=== PATIENT | female | born 1955 | race Caucasian/White ===

== ENCOUNTER 2018-09-30 12:50 | Inpatient (IN) | payer OTHER ==
[~2018-09-30] VITALS: Ht 149.9 cm; Wt 83.9 kg
[~2018-09-30 12:50] MED LIST: GABA300C PO; LANTUS SUBQ; LEVO0.2T5 PO; METF1000 PO; UNKNOWN INSULIN SQVAC; VAS5 PO
[2018-09-30 12:55] VITALS: BP 149/64
--- NOTE | 2018-09-30 13:11 | NUR ---
Patient transferred to bed 3 via wheelchair by tech. RN evaluating patient at bedside.
--- NOTE | 2018-09-30 13:36 | NUR ---
Dr. Riggs evaluating patient at bedside.
--- NOTE | 2018-09-30 13:50 | NUR ---
PT PRESENTS TO THE ED WITH C/O RIGHT LOWER LEG REDNESS AND PAIN. ERYHEMA AND SWELLING NOTED TO THE RIGHT SANTANA, NO DRAINANGE NOTED. PATIENT STATES HER LEG HAS BEEN RED AND SWOLLEN X1 WEEK. PER PATIENT SHE WAS SEEN BY HER DR 3DAYS AGO AND WAS GIVEN CLINDAMYCIN. PT REPORTS TAKING MEDS ORDERED BUT NO RELIEF. BED LOWERED WITH SIDE RAIL UP PMH: DM, ARTHRITIS,HTN
[2018-09-30] MEDS ORDERED: NACL 0.9% 2,000 ML IV SCH (13:56)
[2018-09-30] MEDS ORDERED: CLINDAMYCIN 900 MG in DEXTROSE 5% 100 ML IV ONE (14:00)
[2018-09-30] MEDS ORDERED: CLINDAMYCIN 900 MG/6 ML VIAL IV ONE (14:19)
[2018-09-30 14:41] LABS: BASOPHILS % (AUTO) 0.6 % (0.0-2.0); EOSINOPHILS # (AUTO) 0.1 K/uL (0-0.4); EOSINOPHILS % (AUTO) 2.1 % (0.0-4.0); HEMATOCRIT 34.7 % (36-48); HEMOGLOBIN 11.5 g/dL (12.0-16.0); LYMPHOCYTES # (AUTO) 1.2 K/uL (2.5-16.5); LYMPHOCYTES % (AUTO) 20.1 % (20.5-51.1); MEAN CORPUSCULAR HEMOGLOBIN 25 pg (27-31); MEAN CORPUSCULAR HGB CONC 33 g/dL (33-37); MEAN CORPUSCULAR VOLUME 76.5 fL (80-94); MONOCYTES # (AUTO) 0.4 K/uL (0.8-1.0); MONOCYTES % (AUTO) 7.3 % (1.7-9.3); NEUTROPHILS # (AUTO) 4.1 K/uL (1.8-7.7); NEUTROPHILS % (AUTO) 69.9 % (42.2-75.2); PLATELET COUNT (AUTO) 173 K/uL (140-450); RED BLOOD CELL COUNT(AUTO) 4.53 MIL/uL (4.20-5.40); RED CELL DISTRIBUTION WIDTH 15.4 % (11.6-13.7); WHITE BLOOD COUNT (AUTO) 5.8 K/uL (4.8-10.8)
[2018-09-30 14:46] LABS: BILIRUBIN,URINE NEGATIVE (NEGATIVE); BLOOD, URINE 2+ (NEGATIVE); COLOR,URINE YELLOW (YELLOW); LEUKOCYTE ESTERASE ,URINE NEGATIVE (NEGATIVE); NITRITE, URINE NEGATIVE (NEGATIVE); UGLUCOSE 2+ (NEGATIVE)
[2018-09-30 14:47] LABS: APPEARANCE,URINE HAZY (CLEAR)
[2018-09-30 14:50] LABS: ANION GAP 7.9 (8-16); CHLORIDE 102 mmol/L (98-107); GFR ARICAN-AMERICAN 72 mL/min (>90); GLUCOSE 274 mg/dL (74-106); POTASSIUM 3.9 mmol/L (3.5-5.1); SODIUM SERUM 136 mmol/L (136-145); UREA NITROGEN, BLOOD 36 mg/dL (7-18)
[2018-09-30 14:55] LABS: PROTHROMBIN TIME 9.4 secs (10.8-13.4)
[2018-09-30 14:56] LABS: ALBUMIN 2.8 g/dL (3.4-5.0); ASPARTATE AMINOTRANSFERASE 23 U/L (15-37); MAGNESIUM 2.1 mg/dL (1.8-2.4); TOTAL BILIRUBIN 0.2 mg/dL (0.0-1.0)
[2018-09-30 14:57] LABS: RBC,URINE 11-20 (MOD) /HPF (0-5); WBC,URINE 0-5 /HPF (0-5)
--- NOTE | 2018-09-30 17:05 | NUR ---
RECEIVED HAND OFF REPORT FROM LICENSED APPRAISER. PT IS IN BED PT IS STABLE AND IN NO APPARENT DISTRESS. ALL SAFETY MEASURES ARE IN PLACE. WILL CONTINUE TO MONITOR.
--- NOTE | 2018-09-30 17:07 | NUR ---
Patient will be admitted to care of DR PELAYO. Admited to [facility]. Will go to room 120B. Belongings list completed. Report to SILVERIO YOUNG.
[2018-09-30] MEDS: NACL 0.9% 1,000 ML IV SCH (17:17)
[2018-09-30] MEDS ORDERED: ALBUTEROL 0.083% 2.5 MG/3 ML NEBU INH PRN (17:20)
[2018-09-30] MEDS ORDERED: INSULIN LISPRO SLIDING SCALE 100 UNITS/ML VIAL SUBQ PRN (17:20)
[2018-09-30] MEDS ORDERED: VANCOMYCIN PER PHARMACY MC PRN (17:20)
[2018-09-30] MEDS ORDERED: ONDANSETRON 4 MG/2 ML VIAL IVP PRN (17:20)
[2018-09-30] MEDS ORDERED: DEXTROSE 50% 50 ML SYR IVP PRN (17:20)
[2018-09-30] MEDS ORDERED: MORPHINE SULFATE 4 MG/ML SYR IVP PRN (17:20)
[2018-09-30] MEDS ORDERED: HYDROcodone/APAP 5/325 MG 1 TAB TAB PO PRN (17:20)
--- NOTE | 2018-09-30 17:40 | NUR ---
ADMINISTERED CLONIDINE STAT INSTRUCTED BY DR. PELAYO. DID MEDICATION OVERRIDE.
[2018-09-30] MEDS ORDERED: cloNIDine 0.1 MG TAB ONE (17:41)
--- NOTE | 2018-09-30 18:00 | NUR ---
TOOK PICTURES OF PTS RIGHT LOWER LEG WOUND AND PLACED IN PT CHART
--- NOTE | 2018-09-30 18:40 | NUR ---
CLONIDINE REASSESSMENT BP 157/44. PT IS AWAKE IN BED PT IS STABLE AND IN NO APPARENT DISTRESS. ALL SAFETY MEASURES ARE IN PLACE. WILL CONTINUE TO MONITOR. IVF INFUSING IV SITE SHOWS NO SIGNS OF INFILTRATION OR INFLAMMATION.
[2018-09-30] MEDS: cloNIDine 0.1 MG TAB PO PRN ×2 (18:45→21:04)
[2018-09-30] MEDS: LEVOFLOXACIN 500 MG/D5W PREMIX 100 ML IV SCH (18:54)
--- NOTE | 2018-09-30 19:25 | NUR ---
ENDORSED PT TO CO FOUNDER AND DIRECTOR RN PT IS AWAKE IN BED. IVF INFUSING. PT IS STABLE AND APPEARS IN NO APPARENT DISTRESS. ALL SAFETY MEASURES ARE IN PLACE. WILL CONTINUE TO MONITOR.
--- NOTE | 2018-09-30 19:30 | NUR ---
RECEIVED REPORT FROM DAY SHIFT RNEDDA. PATIENT SLEEPING IN BED. NO SIGNS OF DISTRESS ON RA. SAFETY PRECAUTIONS IN PLACE.
[2018-09-30 19:54] VITALS: BP 177/93
[2018-09-30] MEDS ORDERED: VANCOMYCIN 1,000 MG VIAL ONE (20:10)
[2018-09-30] MEDS: VANCOMYCIN 750 MG in DEXTROSE 5% 250 ML IV SCH (20:10)
[2018-09-30] MEDS: BLOOD GLUCOSE MONITORING 1 DEV DEV FS SCH (20:24)
--- NOTE | 2018-09-30 20:30 | NUR ---
ADMINISTERED SCHEDULED MEDICATIONS. PATIENT BLOOD GLUCOSE IS 343. PATIENT STATES SHE IS ALLERGIC TO HUMALOG AND CANNOT TAKE IT. ASKED PATIENT WHICH REGULAR INSULIN SHE CAN TAKE, SHE CALLED HOME TO FIND OUT. AWAITING RETURN PHONE CALL WITH NAME OF ACCEPTABLE REGULAR INSULIN.
--- NOTE | 2018-09-30 21:00 | NUR ---
RECEIVED CALL BACK FROM FAMILY THAT PATIENT TAKES APIDRA FOR REGULAR INSULIN. PATIENT ALSO STATES SHE HAS PAIN IN HER FINGERS AND FEET BUT THAT GABAPENTIN IS NOT EFFECTIVE, AND THAT NORCO AND MORPHINE MAKE HER TOO SLEEPY, SHE WILL NOT TAKE THOSE. SHE THINKS SHE TAKES BACLOFEN, AND WILL ALSO TAKE NAPROXEN. SHE WILL TAKE TYLENOL IF NEED BE. WILL CALL DR. PELAYO TO INFORM OF THESE FINDINGS.
--- NOTE | 2018-09-30 21:10 | NUR ---
DR. PELAYO RETURNED PHONE CALL. WILL CHANGE ORDERS FROM HUMALOG SLIDING SCALE OT APIDRA SLIDING SCALE. NO BACLOFEN UNLESS PATIENT CAN PROVIDE PROOF OF PRIOR PRESCRIPTION. GIVE PATIENT TYLENOL FOR DIGITAL PAIN.
--- NOTE | 2018-09-30 22:09 | NUR ---
PAGED DR PELAYO. NEED NEW ORDER FOR APIDRA PLACED.
--- NOTE | 2018-09-30 22:15 | NUR ---
DR. XIONG CHAIN FORMING MACHINE OPERATOR FOR DR. PELAYO. PATIENT IS ALLERGIC TO HUMALOG. PATIENT USES APIDRA FOR REGULAR INSULIN AT HOME. APIDRA IS NOT AVAILABLE. CURRENT BLOOD GLUCOSE IS 343. PER DR. XIONG, PATIENT NEEDS TO BRING IN THE APIDRA FROM HOME TO PLACE ORDER A HOME MED. PATIENT WILL CALL SON TO BRING APIDRA. PER DR. XIONG. HUMULIN 70/30 IS A ADEQUATE SUBSTITUTE. HE ORDERED 10 UNITS HUMULIN 70/30 SUB Q, ONE TIME DOSE, NOW. WILL DISCUSS WITH PATIENT.
[2018-09-30] MEDS ORDERED: INSULIN NPH HUM/REG INSULIN HM 100 UNIT/ML 10 ML VIAL SUBQ SCH (22:30)
--- NOTE | 2018-09-30 22:30 | NUR ---
PATIENT IS REFUSING TO TAKE HUMULIN FOR FEAR THAT IS SIMILAR TO HUMALOG WHICH SHE IS ALLERGIC TO. EDUCATED PATIENT THAT THE DOCTOR IS AWARE OF THE HUMALOG ALLERGY AND THAT THIS IS A DIFFERENT INSULIN. PATIENT HAS CALLED HER SON TO BRING APIDRA, AND WANTS TO WAIT FOR HIM. EXPLAINED THAT IT IS A TIMELY PROCESS TO HAVE PHARMACY VERIFY A HOME MED, BUT SHE PREFERS TO WAIT.
[2018-09-30] MEDS: ACETAMINOPHEN 325 MG TAB PO PRN (23:28)
--- NOTE | 2018-09-30 23:45 | NUR ---
PATIENT SON BROUGHT INSULIN FROM HOME, BUT IT IS NOT APIDRA. IT IS BASAGLAR LONG ACTIN INSULIN IN A PEN. PATIENT TAKES 50 UNITS EACH MORNING AND NIGHT. STILL NO APIDRA AT THIS TIME. EXPLAINED AGAIN THAT HUMULIN IS WHAT WE CURRENT HAVE AVAILABLE TO MANAGE HER HIGH GLUCOSE LEVELS, AND THAT SHE HAS AN INFECTION THAT REQUIRES BETTER GLUCOSE MANAGEMENT FOR OPTIMAL HEALING. SHE AGREED TO TAKE THE 10 UNITS OF HUMULIN 70/30 SUB Q. ALL HOME MEDS HAVE BEEN TURNED IN TO PHARMACY.
[2018-10-01] VITALS: BP 129/47
--- NOTE | 2018-10-01 00:08 | NUR ---
ADMINISTERED 10 UNITS OF HUMULIN 70/30 SUB Q. PATIENT GLUCOSE 354 PRIOR TO ADMINISTRATION. EDUCATED PATIENT ON SIGNS OF HYPOGLYCEMIA AND TO CALL ME IF SHE FEELS SHE MAY HAVE LOW GLUCOSE. WILL MONITOR PATIENT CLOSELY WELL.
--- NOTE | 2018-10-01 02:00 | NUR ---
PATIENT SLEEPING, SKIN IS DRY, PATIENT WAKES EASILY, LOC WITHIN NORMAL LIMITS. PATIENT STABLE, NO SIGNS OF DISTRESS ON RA.
[2018-10-01] MEDS: NACL 0.9% 1,000 ML IV SCH ×2 (02:45→06:45)
--- NOTE | 2018-10-01 04:00 | NUR ---
PATIENT STABLE, SLEEPING BUT WAKES EASILY, NO SIGNS OF DISTRESS ON RA. SAFETY PRECAUTIONS IN PLACE. WILL CONTINUE TO MONITOR.
--- NOTE | 2018-10-01 05:50 | NUR ---
PATIENT C/O FEELINGS OF HYPOGLYCEMIA. FINGERSTICK GLUCOSE IS 126. PATIENT IS REQUESTING A SNACK. WILL PROVIDE SNACK AND RELAY FINDINGS TO DAY SHIFT RN. NO SLIDING SCALE COVERAGE IS AVAILABLE AT THIS TIME.
[2018-10-01] MEDS: LEVOTHYROXINE 0.1 MG TAB PO SCH (06:45)
--- NOTE | 2018-10-01 07:24 | NUR ---
GAVE BEDSIDE REPORT TO DAY SHIFT RNEDDA. PATIENT STABLE WITH NO SIGNS OF DISTRESS ON RA.
--- NOTE | 2018-10-01 07:25 | NUR ---
RECEIVED HAND OFF REPORT FROM RISK MANAGEMENT CONSULTANT NURSE PT IS AWAKE IN BED PT IS STABLE AND IN NO APPARENT DISTRESS. ALL SAFETY MEASURES ARE IN PLACE, WILL CONTINUE TO MONITOR.
[2018-10-01] MEDS: BLOOD GLUCOSE MONITORING 1 DEV DEV FS SCH ×4 (07:43→21:48)
[2018-10-01 07:44] LABS: BASOPHILS % (AUTO) 0.9 % (0.0-2.0); EOSINOPHILS # (AUTO) 0.1 K/uL (0-0.4); EOSINOPHILS % (AUTO) 2.9 % (0.0-4.0); HEMATOCRIT 34.4 % (36-48); HEMOGLOBIN 11.3 g/dL (12.0-16.0); LYMPHOCYTES # (AUTO) 1.2 K/uL (2.5-16.5); LYMPHOCYTES % (AUTO) 26.7 % (20.5-51.1); MEAN CORPUSCULAR HEMOGLOBIN 25 pg (27-31); MEAN CORPUSCULAR HGB CONC 33 g/dL (33-37); MEAN CORPUSCULAR VOLUME 76.3 fL (80-94); MONOCYTES # (AUTO) 0.4 K/uL (0.8-1.0); MONOCYTES % (AUTO) 8.5 % (1.7-9.3); NEUTROPHILS # (AUTO) 2.6 K/uL (1.8-7.7); PLATELET COUNT (AUTO) 169 K/uL (140-450); RED BLOOD CELL COUNT(AUTO) 4.51 MIL/uL (4.20-5.40); RED CELL DISTRIBUTION WIDTH 15.1 % (11.6-13.7); WHITE BLOOD COUNT (AUTO) 4.3 K/uL (4.8-10.8)
--- NOTE | 2018-10-01 07:44 | NUR ---
FINGERSTICK GLUCOSE 168. NOT ABLE TO GIVE SLIDING SCALE BECAUSE APIDRA NOT AVAILABLE AT THE MOMENT. WAITING FOR FAMILY TO BRING MEDICATION. WILL ADMINISTER SCHEDULED LANTUS EARLY.
--- NOTE | 2018-10-01 07:52 | NUR ---
DR. XIONG PURCHASING INTERNSHIP FOR DR. PELAYO. PATIENT IS ALLERGIC TO HUMALOG. PATIENT USES APIDRA FOR REGULAR INSULIN AT HOME. APIDRA IS NOT AVAILABLE. CURRENT BLOOD GLUCOSE IS 343. PER DR. XIONG, PATIENT NEEDS TO BRING IN THE APIDRA FROM HOME TO PLACE ORDER A HOME MED. PATIENT WILL CALL SON TO BRING APIDRA. PER DR. XIONG. HUMULIN 70/30 IS A ADEQUATE SUBSTITUTE. HE ORDERED 10 UNITS HUMULIN 70/30 SUB Q, ONE TIME DOSE, NOW. WILL DISCUSS WITH PATIENT. Addendum: 10/01/18 at 0804 by Mona Malone RN THIS CONVERSATION OCCURRED ON 09/30/18 @ 1486
[2018-10-01 08:00] VITALS: BP 166/55
[2018-10-01 08:05] LABS: PHOSPHORUS 3.8 mg/dL (2.5-4.9)
--- NOTE | 2018-10-01 08:05 | NUR ---
ADMINISTERED 50 UNITS LANTUS. PT REFUSED GABAPENTIN. PT STATED IT DOES NOT HELP HER.
[2018-10-01 08:07] LABS: ANION GAP 8.6 (8-16); CARBON DIOXIDE 29.6 mmol/L (21-32); CREATININE 0.7 mg/dL (0.6-1.3); POTASSIUM 4.2 mmol/L (3.5-5.1)
--- NOTE | 2018-10-01 08:10 | NUR ---
ASKED PATIENT IF HER SON WILL BE ABLE TO BRING THE APIDRA. PT STATED THAT SHE RAN OUT OF THAT MEDICATION AND HER PRIMARY DOCTORS OFFICE IS CLOSED THIS WEEKEND. INFORMED CHARGE NURSE JOHN PAUL, JOHN PAUL SPOKE WITH PHARMACY. WILL SPEAK WITH DR. XIONG WHEN HE ARRIVES ON THE UNIT. AND WILL CONTINUE TO MONITOR THE PATIENTS BLOOD SUGAR.
[2018-10-01] MEDS: ENALAPRIL 5 MG TAB PO SCH (08:21)
[2018-10-01] MEDS: GABAPENTIN 300 MG CAP PO SCH (08:22)
[2018-10-01] MEDS: INSULIN LANTUS 100 UNITS/ML 10 ML VIAL SUBQ SCH (08:27)
[2018-10-01] MEDS: VANCOMYCIN 750 MG in DEXTROSE 5% 250 ML IV SCH ×2 (08:29→21:39)
--- NOTE | 2018-10-01 09:25 | NUR ---
FREQUENT ROUNDING PT IS AWAKE IN BED. PT IS STABLE AND IN NO APPARENT DISTRESS. ALL SAFETY MEASURES ARE IN PLACE. WILL CONTINUE TO MONITOR.
--- NOTE | 2018-10-01 11:47 | NUR ---
FINGERSTICK GLUCOSE 285. NO SLIDING SCALE AVAILABLE BECAUSE PATIENT IS ALLERGIC TO HUMALOG. PT HAD HUMILIN LAST NIGHT FOR HIGH BLOOD SUGAR. PAGED DR. PELAYO FOR INSULIN FOR COVERAGE
[2018-10-01] MEDS ORDERED: COMMUNICATION ORDER MC SCH (12:20)
--- NOTE | 2018-10-01 12:41 | NUR ---
SPOKE WITH LOKESH FROM PHARMACY ABOUT HAVING THEM VERIFY THE REGULAR INSULIN ORDER. THAT WAS PLACED SO WE CAN GIVE THE MEDICATION. LOKESH SAID HE WILL SEND A VIAL OF REGULAR INSULIN SO IT CAN BE ADMINISTERED.
[2018-10-01] MEDS: INSULIN REGULAR HUMAN 100 UNIT/ML SUBQ PRN ×3 (13:18→22:50)
--- NOTE | 2018-10-01 13:18 | NUR ---
RECEIVED HUMULIN R FROM PHARMACY ADMINISTERED MEDICATION PER SLIDING SCALE WILL CONTINUE TO MONITOR, PT IS STABLE AND IN NO APPARENT DISTRESS AT THE MOMENT.
--- NOTE | 2018-10-01 15:25 | NUR ---
FREQUENT ROUNDING PT IS STABLE AND IN NO APPARENT DISTRESS. ALL SAFETY MEASURES ARE IN PLACE. WILL CONTINUE TO MONITOR,
[2018-10-01 16:00] VITALS: BP 188/65
[2018-10-01] MEDS: cloNIDine 0.1 MG TAB PO PRN (16:26)
--- NOTE | 2018-10-01 16:28 | NUR ---
CLONIDINE ADMINISTERED BP 188/65. WILL REASSESS IN ONE HOUR
--- NOTE | 2018-10-01 16:30 | NUR ---
FINGERSTICK BLOOD GLUCOSE 328 ADMINISTERED 8 UNITS HUMULIN PER SLIDING SCALE DR'S ORDERS. WILL CONTINUE TO MONITOR
--- NOTE | 2018-10-01 16:45 | NUR ---
OBTAINED CONSENT FOR PICC LINE PLACEMENT PER DR FOFANA. CONSENT HAS BEEN PLACED IN THE CHART
--- NOTE | 2018-10-01 17:30 | NUR ---
CLONIDINE REASSESSMENT BLOOD PRESSURE 165/47 WILL CONTINUE TO MONITOR BLOOD PRESSURE. PT IS STABLE AND IN NO APPARENT DISTRESS AT THE MOMENT.
[2018-10-01] MEDS: LEVOFLOXACIN 500 MG/D5W PREMIX 100 ML IV SCH (18:19)
--- NOTE | 2018-10-01 19:39 | NUR ---
ENDORSED PT TO CLAIM TAKER RN. PT IS STABLE AND IN NO APPARENT DISTRESS. ALL SAFETY MEASURES ARE IN PLACE
--- NOTE | 2018-10-01 19:40 | NUR ---
RECEIVED REPORT FROM [facility] SILVERIO BAÑUELOS. A/O X4. DISCUSSED PLAN OF CARE. VERBALIZED UNDERSTANDING. ABLE TO MAKE NEEDS NEEDS KNOWN. ROOM AIR. ABLE TO AMBULATE INDEPENDENTLY. WEARING ALLERGY WRIST BAND. R AC 24 G INFUSING 75ML/HR. PATENT AND INTACT. SKIN IS INTACT. BED IN LOW POSITION. CALL LIGHT WITHIN REACH.
--- NOTE | 2018-10-01 21:55 | NUR ---
ADMINISTERED MEDS SCHEDULED. EDUCATED ON SIDE EFFECTS. VERBALIZED UNDERSTANDING. TOLERATED WELL. WILL CONTINUE TO MONITOR.
--- NOTE | 2018-10-01 22:01 | NUR ---
PT FOR PICC LINE INSERTION. SILVERIO ADAM SAP TRAINER LEFT MESSAGE TO PICC LINE NURSE OFFICE @0978. WILL WAIT FOR CALL BACK.
[2018-10-02] VITALS: BP 208/68
--- NOTE | 2018-10-02 | NUR ---
PT SLEEPING IN BED. EASILY AROUSABLE. VITALS TAKEN. TOLERATED WELL. WILL CONTINUE TO MONITOR.
--- NOTE | 2018-10-02 01:24 | NUR ---
PT UP USING RESTROOM. STEADY GAIT. BACK IN BED. BED IN LOW POSITION. CALL LIGHT WITHIN REACH. WILL CONTINUE TO MONITOR.
[2018-10-02] MEDS: cloNIDine 0.1 MG TAB PO PRN ×2 (01:25→20:48)
[2018-10-02] MEDS: NACL 0.9% 1,000 ML IV SCH ×2 (01:58→09:28)
--- NOTE | 2018-10-02 03:00 | NUR ---
PT BP REASSESSED. VITALS NOW 142/45 BP. 55 PULSE. PT LAYING IN BED NO SIGNS OF DISTRESS OR DISCOMFORT. DENIES PAIN. WILL CONTINUE TO MONITOR.
--- NOTE | 2018-10-02 05:33 | NUR ---
PT SLEEPING IN BED. NO DISTRESS NOTED. WILL CONTINUE TO MONITOR.
[2018-10-02] MEDS: LEVOTHYROXINE 0.1 MG TAB PO SCH (05:56)
[2018-10-02] MEDS: BLOOD GLUCOSE MONITORING 1 DEV DEV FS SCH ×4 (06:32→20:47)
[2018-10-02] MEDS: INSULIN REGULAR HUMAN 100 UNIT/ML SUBQ PRN ×3 (06:43→20:54)
--- NOTE | 2018-10-02 06:56 | NUR ---
D/C RAC 24G. CANULA INTACT. INSERTED L FA 24 G SL. PT TOLERATED WELL.
[2018-10-02 07:05] LABS: EOSINOPHILS # (AUTO) 0.1 K/uL (0-0.4); HEMATOCRIT 32.7 % (36-48); HEMOGLOBIN 10.8 g/dL (12.0-16.0); LYMPHOCYTES # (AUTO) 1.2 K/uL (2.5-16.5); LYMPHOCYTES % (AUTO) 29.3 % (20.5-51.1); MEAN CORPUSCULAR HEMOGLOBIN 25 pg (27-31); MEAN CORPUSCULAR HGB CONC 33 g/dL (33-37); MEAN CORPUSCULAR VOLUME 76.3 fL (80-94); MONOCYTES # (AUTO) 0.3 K/uL (0.8-1.0); NEUTROPHILS # (AUTO) 2.5 K/uL (1.8-7.7); NEUTROPHILS % (AUTO) 59.7 % (42.2-75.2); PLATELET COUNT (AUTO) 166 K/uL (140-450); RED BLOOD CELL COUNT(AUTO) 4.29 MIL/uL (4.20-5.40); RED CELL DISTRIBUTION WIDTH 15.3 % (11.6-13.7); WHITE BLOOD COUNT (AUTO) 4.2 K/uL (4.8-10.8)
--- NOTE | 2018-10-02 07:12 | NUR ---
WILL ENDORSE PT TO DAY SHIFT RN. PT IN STABLE CONDITION.
--- NOTE | 2018-10-02 07:20 | NUR ---
RECEIVED REPORT FROM NIGHT NURSE, PT AWAKE A/O X4 AND APPROPRIATE. PT DENIES, PAIN. DX CELLULITIS TO RLE OUTLINED WITH NO INCREASE IN INDURATION NOTED. CALL LIGHT AND PERSONAL ITEMS WITHIN EASY REACH, SAFETY MEASURES IN PLACE NO S/S OF ACUTE DISTRESS NOTED, WILL CONTINUE TO MONITOR.
[2018-10-02 07:29] LABS: ANION GAP 8.8 (8-16); CARBON DIOXIDE 27.5 mmol/L (21-32); CREATININE 0.8 mg/dL (0.6-1.3); POTASSIUM 4.3 mmol/L (3.5-5.1)
[2018-10-02 07:30] LABS: MAGNESIUM 1.8 mg/dL (1.8-2.4); PHOSPHORUS 3.3 mg/dL (2.5-4.9)
[2018-10-02 08:00] VITALS: BP 162/58
[2018-10-02] MEDS: GABAPENTIN 300 MG CAP PO SCH ×2 (09:00→09:18)
--- NOTE | 2018-10-02 09:14 | NUR ---
HEPARIN HELD FOR PICC LINE PLACEMENT TODAY.
[2018-10-02] MEDS: ENALAPRIL 5 MG TAB PO SCH (09:18)
[2018-10-02] MEDS: VANCOMYCIN 750 MG in DEXTROSE 5% 250 ML IV SCH ×2 (09:27→21:00)
[2018-10-02] MEDS: INSULIN LANTUS 100 UNITS/ML 10 ML VIAL SUBQ SCH (09:27)
--- NOTE | 2018-10-02 09:28 | NUR ---
SPOKE WITH PICC LINE NURSE HYACINTH, WILL BE HERE TO INSERT PICC LINE BEFORE NOON. PT NOTIFIED AND AGREEABLE. CALL LIGHT AND PERSONAL ITEMS WITHIN EASY REACH, SAFETY MEASURES IN PLACE NO S/S OF ACUTE DISTRESS NOTED, WILL CONTINUE TO MONITOR
--- NOTE | 2018-10-02 11:10 | NUR ---
SPOKE WITH PICC NURSE HYACINTH, PER HYACINTH SHE IS EN ROUTE FOR PROCEDURE, NOTIFIED MACHINE MARKER REGARDING PICC LINE PLACEMENT.
--- NOTE | 2018-10-02 11:57 | NUR ---
PICC NURSE HYACINTH ON UNIT TO PERFORM PICC INSERTION AT BEDSIDE, PT AWAKE A/O AND APPROPRIATE, VERBALIZED UNDERSTANDING OF PROCEDURE AND AGREEMENT, TIME OUT VERIFICATION COMPLETED.
--- NOTE | 2018-10-02 13:00 | NUR ---
PT PICC LINE PLACED AT BEDSIDE BY PICC NURSE HYACINTH WITH US, AND CXR COMPLETED AT BEDSIDE FOR VERIFICATION PT APPEARED TO TOLERATE PROCEDURE WELL. DENIES PAIN, SOB, NO S/S OF ACUTE DISTRESS. ORIGINAL DRESSING IN PLACE, CLEAN DRY AND INTACT. PT SITTING AT BEDSIDE HAVING LUNCH, CALL LIGHT AND PERSONAL ITEMS WITHIN EASY REACH, SAFETY MEASURES IN PLACE, WILL CONTINUE TO MONITOR.
--- NOTE | 2018-10-02 13:28 | NUR ---
PATIENT HAS BEEN SCREENED AND CATEGORIZED MODERATE NUTRITION RISK. PATIENT WILL BE SEEN WITHIN 3-5 DAYS OF ADMISSION. 10/03/18KRIS PAEZ MBA, RD
[2018-10-02] MEDS: ACETAMINOPHEN 325 MG TAB PO PRN ×2 (13:35→20:50)
--- NOTE | 2018-10-02 14:24 | NUR ---
PT C/O DISCOMFORT TO LUE PERIPHERAL IV SITE,PERIPHERAL IV TO LFA REMOVED, CATH INTACT, PT TOLERATED WELL, NO REDNESS OR SWELLING NOTED TO SITE. REINFORCED PICC EDUCATION, SHOWED HOW TO COVER PRIOR TO SHOWER. PT DEMONSTRATES UNDERSTANDING, ASSISTED PT TO SHOWER. PT REMAINS A/O APPROPRIATE, NO S/SO ACUTE DISTRESS NOTED. PICC RO RUE REMAINS IN PLACE, PATENT, DRESSING DRY AND INTACT. WILL CONTINUE TO MONITOR.
[2018-10-02 16:00] VITALS: BP 146/57
--- NOTE | 2018-10-02 16:30 | NUR ---
PT APPEARS COMFORTABLE, SLEEPING AT THIS TIME. CALL LIGHT AND PERSONAL ITEMS WITHIN EASY REACH, SAFETY MEASURES IN PLACE NO S/S OF ACUTE DISTRESS NOTED, WILL CONTINUE TO MONITOR.
[2018-10-02] MEDS: LEVOFLOXACIN 500 MG/D5W PREMIX 100 ML IV SCH (17:32)
--- NOTE | 2018-10-02 19:30 | NUR ---
REPORT GIVEN TO NIGHT NURSE ISAURO, PT CALM IN BED AT THIS TIME, REMAINS A/O X1 WITH CONFUSION, PT DENIES, PAIN, APPEARS COMFORTABLE. DRESSING TO L BACK REMAINS CLEAN DRY AND INTACT, CALL LIGHT AND PERSONAL ITEMS WITHIN EASY REACH, SAFETY MEASURES IN PLACE NO S/S OF ACUTE DISTRESS NOTED AT THIS TIME.
--- NOTE | 2018-10-02 19:31 | NUR ---
RECEIVED BEDSIDE REPORT FROM DAY SHIFT RN. PT A/O X4 DISCUSSED PLAN OF CARE WITH PT. VERBALIZED UNDERSTANDING. ABLE TO MAKE NEEDS KNOWN. ROOM AIR. NO SIGNS OF DISTRESS. PICC LINE IN R UA. INSERTED IN 10/02/18. PATENT AND INTACT. INFUSING NS @75. SKIN NON INTACT. CELLULITIS TO R LOWER LEG. BLUE PEN CESILIA PREVIOUSLY MADE AROUND THE INFECTED SITE. BED IN LOWEST POSITION. CALL LIGHT WITHIN REACH. WILL CONTINUE TO MONITOR.
[2018-10-02 20:00] VITALS: BP 184/54
--- NOTE | 2018-10-02 20:48 | NUR ---
BLOOD PRESSURE AT 184/54. PULSE 58. TAKEN A SECOND TIME FOR ACCURACY. SECOND BLOOD PRESSURE 180/60. PULSE 56. MEDICATED WITH PRN CLONIDINE. WILL REASSESS. @ 3135.
--- NOTE | 2018-10-02 22:30 | NUR ---
PT AWAKE. AMBULATING TO THE RESTROOM. STEADY GAIT. NO SIGNS OF DISTRESS NOTED. NO SHORTNESS OF BREATH. WILL CONTINUE TO MONITOR.
--- NOTE | 2018-10-03 01:01 | NUR ---
PT SLEEPING IN BED. EASILY AROUSABLE TO NAME. NO SIGNS OF DISTRESS NOTED. WILL CONTINUE TO MONITOR.
--- NOTE | 2018-10-03 03:10 | NUR ---
PT IS ASLEEP IN BED. EASILY AROUSABLE TO NAME. NO SIGNS OF DISTRESS NOTED. DENIES PAIN. WILL CONTINUE TO MONITOR.
[2018-10-03] MEDS: BLOOD GLUCOSE MONITORING 1 DEV DEV FS SCH ×3 (05:18→16:30)
[2018-10-03] MEDS: INSULIN REGULAR HUMAN 100 UNIT/ML SUBQ PRN ×2 (05:22→11:58)
--- NOTE | 2018-10-03 05:24 | NUR ---
PT BLOOD SUGAR 173. 2 UNITS OF REGULAR INSULIN GIVEN. NOTED EDEMA ON BOTH FEET. R FOOT PITTING +1, L FOOT PITTING +2. NO SIGNS OF RESP DISTRESS. WILL CONTINUE TO MONITOR.
[2018-10-03] MEDS: LEVOTHYROXINE 0.1 MG TAB PO SCH (06:40)
[2018-10-03 06:55] LABS: MAGNESIUM 1.7 mg/dL (1.8-2.4); PHOSPHORUS 4.3 mg/dL (2.5-4.9)
[2018-10-03 06:56] LABS: BASOPHILS % (AUTO) 1.1 % (0.0-2.0); EOSINOPHILS # (AUTO) 0.1 K/uL (0-0.4); EOSINOPHILS % (AUTO) 3.5 % (0.0-4.0); HEMATOCRIT 31.5 % (36-48); HEMOGLOBIN 10.8 g/dL (12.0-16.0); LYMPHOCYTES # (AUTO) 1.3 K/uL (2.5-16.5); LYMPHOCYTES % (AUTO) 33.5 % (20.5-51.1); MEAN CORPUSCULAR HEMOGLOBIN 26 pg (27-31); MEAN CORPUSCULAR HGB CONC 34 g/dL (33-37); MEAN CORPUSCULAR VOLUME 76.3 fL (80-94); MONOCYTES # (AUTO) 0.3 K/uL (0.8-1.0); NEUTROPHILS # (AUTO) 2.1 K/uL (1.8-7.7); NEUTROPHILS % (AUTO) 53.9 % (42.2-75.2); PLATELET COUNT (AUTO) 164 K/uL (140-450); RED BLOOD CELL COUNT(AUTO) 4.13 MIL/uL (4.20-5.40); RED CELL DISTRIBUTION WIDTH 15.1 % (11.6-13.7)
[2018-10-03 06:57] LABS: ANION GAP 10.6 (8-16); CARBON DIOXIDE 26.8 mmol/L (21-32); CREATININE 0.7 mg/dL (0.6-1.3); POTASSIUM 4.4 mmol/L (3.5-5.1)
--- NOTE | 2018-10-03 07:19 | NUR ---
ENDORSED AND BEDSIDE REPORT GIVEN TO DAY SHIFT RN LUBA. PT AWAKE A/O X4 ABLE TO MAKE NEEDS KNOWN. PT DENIES, PAIN. CALL LIGHT WITHIN REACH. NO SIGNS OF RESP DISTRESS. PT IN STABLE CONDITION.
--- NOTE | 2018-10-03 07:20 | NUR ---
RECEIVED REPORT FROM THE TAPING MACHINE OPERATOR NURSE AT BEDSIDE FOR CONTINUITY OF CARE. PT IS AWAKE AND ORIENTED. SITTING ON THE SIDE OF THE BED. PT IS AMBULATORY. PICC LINE ON R UA 2 LUMENS NS AT 75ML/HR INFUSING. COMPLAINS OF SOME SORENESS FROM THE PICC LINE. SKIN: R LOWER LEG REDNESS, A SCAB IN THE CENTER AND PITTING EDEMA +2 ON THE FOOT. LBM WAS YESTERDAY. V/S IS WITHIN NORMAL RANGE. WILL CONTINUE TO MONITOR PT.
[2018-10-03 08:00] VITALS: BP 160/43
[2018-10-03] MEDS: ENALAPRIL 5 MG TAB PO SCH (08:24)
[2018-10-03] MEDS: GABAPENTIN 300 MG CAP PO SCH ×2 (08:24→08:39)
[2018-10-03] MEDS: VANCOMYCIN 750 MG in DEXTROSE 5% 250 ML IV SCH (08:24)
[2018-10-03] MEDS: INSULIN LANTUS 100 UNITS/ML 10 ML VIAL SUBQ SCH (08:27)
--- NOTE | 2018-10-03 08:48 | NUR ---
ADMINISTERED MORNING MEDS, INCLUDING VANCO. HELD GABAPENTIN. PER PT, IT DOES NOT WORK. PT STILL COMPLAINING ABOUT R FOOT EDEMA AND SORENESS ON THE PICC LINE SITE. PT HAD A BM THIS MORNING. PT TOLERATED WELL. WILL CONTINUE TO MONITOR PT.
--- NOTE | 2018-10-03 10:08 | NUR ---
PAGEGenaro AND SPOKE TO DR. HOLGUIN RE PT'S MAG LEVEL AND R FOOT EDEMA. PER MD, MAG RIDER 2G X1 AND DOPPLER US ON R FOOT FOR EDEMA. WILL PUT IN ORDERS FOR .
[2018-10-03] MEDS: NACL 0.9% 1,000 ML IV SCH (10:57)
[2018-10-03] MEDS ORDERED: MAG SULF 2000 MG/WATER PREMIX 50 ML IV SCH (11:00)
[2018-10-03 16:00] VITALS: BP 171/45
[2018-10-03] MEDS: cloNIDine 0.1 MG TAB PO PRN (16:32)
--- NOTE | 2018-10-03 16:50 | NUR ---
Director Investment Banking Note: I faxed inquiries [facility] and [facility]. Per Meagan from [facility] , they can provide nursing staff Tuesday-Tuesday, cannot on weekends. Per patient, she is willing to learn abx ivs administering needs, Meagan made aware. I confirmed with patient her home address listed on face sheet [phone] [address] [phone] and phone number . Per Luz Maria from [facility] , they will deliver vanco tomorrow morning to patient's home and is aware [facility] will provide nursing staff. Per patient, she goes to [facility] for medical care [id number] [place] [address] . Per Nuclear Medicine Officer Veda, patient will need appointment for vanco trough on either October 06, 2018 or October 07, 2018. I called [facility] and spoke with Blaine, I informed him patient needs appointment for vanco trough on either October 06, 2018 or October 07, 2018. He schedule an appt for patient on October 06, 2018 at 11am for vanco trough. Patient was given appt information. Per Nuclear Medicine Officer Bernadine from [employer] ext [phone], fax or , she will provide [facility] authorization. I faxed 's home health order to Bernadine. Addendum: 10/03/18 at 1704 by Lay DYSON patient made aware [facility] will deliver vanco to her home and [facility] will provide nursing staff.
[2018-10-03] MEDS: LEVOFLOXACIN 500 MG/D5W PREMIX 100 ML IV SCH (17:03)
[2018-10-03 18:02] VITALS: BP 180/67
[2018-10-03] MEDS ORDERED: Vancomycin Per Pharmacy MC (18:18)
--- NOTE | 2018-10-03 19:17 | NUR ---
ENDORSED PT TO THE DISTRIBUTION CLERK NURSE. PT IS IN STABLE CONDITION.
--- NOTE | 2018-10-03 19:18 | NUR ---
RECEIVED REPORT FROM DAY SHIFT RN, PATIENT STABLE ON RA. WILL PREPARE PATIENT FOR DISCHARGE ORDERED.
--- NOTE | 2018-10-03 20:05 | NUR ---
WENT IN TO CHECK ON PT, WAS INFORMED PT HAD BEEN DISCHARGED HOME
--- NOTE | 2018-10-03 20:05 | NUR ---
PATIENT IS IN STABLE CONDITION, DISCHARGING HOME WITH PERSONAL BELONGINGS. SON TRANSPORTING PATIENT HOME VIA PERSONAL VEHICLE. PATIENT HAS HOME MEDICATIONS IN PHARMACY, PHARMACY CLOSED AT THIS TIME. PROVIDEDPATIENT CONTACT INFORMATION TO RETRIEVE MEDICATIONS TOMORROW MORNING, AT 0700 AM.
== END 2018-10-03 20:15 | disposition home health service (06) | DRG 383 ==
LOC: MED 12:50 → MTU 15:24
PROVIDERS: ADMIT Internal Medicine Pulmonary Disease; ATTEND Internal Medicine Pulmonary Disease
PROC: 02HV33Z Insertion of Infusion Device into Superior Vena Cava, Percutaneous Approach (ICD-10-PCS; principal; 2018-10-02)
PROC: B548ZZA Ultrasonography of Superior Vena Cava, Guidance (ICD-10-PCS; 2018-10-02)
DX: L03.115 Cellulitis of right lower limb (principal); E11.42 Type 2 diabetes mellitus with diabetic polyneuropathy; I10 Essential (primary) hypertension; E03.9 Hypothyroidism, unspecified; E86.9 Volume depletion, unspecified; M19.90 Unspecified osteoarthritis, unspecified site; E44.1 Mild protein-calorie malnutrition; Z68.37 Body mass index [BMI] 37.0-37.9, adult; Z88.0 Allergy status to penicillin; Z88.2 Allergy status to sulfonamides; Z91.041 Radiographic dye allergy status; Z79.899 Other long term (current) drug therapy; Z79.4 Long term (current) use of insulin
CPT/HCPCS: 36415; 71045; 73590; 80048; 80053; 80202; 81001; 82550; 82553; 82948; 83036; 83605; 83735; 84100; 85025; 85379; 85610; 86140; 87040; 87081; 87086; 93971; 96365; 99285; C1751; J1644; J1815; J1956; J3370; J3475; J3490; J7030; J7060; Q0092

== ENCOUNTER 2018-10-06 14:52 | Emergency (ER) | payer OTHER ==
[~2018-10-06] VITALS: Ht 149.9 cm; Wt 87.1 kg
[~2018-10-06 14:52] MED LIST changes: +Vancomycin Per Pharmacy MC
[2018-10-06 15:09] VITALS: BP 154/65
--- NOTE | 2018-10-06 15:15 | NUR ---
PT TO ED WITH C/O ELEVATED BP AT HOME. PT DENIES HEADACHE, N/V, BLURRY VISION. PT NOTED TO HAVE WOUND TO RT LEG AND IS RECEIVING CONTINUOUS ABX INFUSION. L UPPER ARM PICC LINE NOTED, +BLOOD RETURN, FLUSHED WITH OUT DIFFICULTY. NO S/S OF INFECTION FROM SITE. PT PLACED INTO BED, PENDING MD BRANDON.
[2018-10-06] MEDS ORDERED: CLINDAMYCIN 900 MG in DEXTROSE 5% 100 ML IV ONE (15:55)
[2018-10-06] MEDS ORDERED: NEOMYCIN/POLYMYXIN/BACITRACIN 0.9 GM/1 PKT TP ONE (15:55)
[2018-10-06] MEDS ORDERED: NACL 0.9% 1,000 ML IV SCH (15:55)
[2018-10-06] MEDS ORDERED: CLINDAMYCIN 900 MG/6 ML VIAL IV ONE (16:15)
--- NOTE | 2018-10-06 16:18 | NUR ---
REFUSED ABG DANIEL/RN NOTIFIED
--- NOTE | 2018-10-06 16:20 | NUR ---
PER RT PT REFUSING ABD DRAW, ER MD BECKWITH NOTIFIED. TO SPEAK TO PT.
[2018-10-06 16:37] LABS: BASOPHILS # (AUTO) 0.1 K/uL (0.00-0.22); BASOPHILS % (AUTO) 1.1 % (0.0-2.0); EOSINOPHILS # (AUTO) 0.1 K/uL (0-0.4); EOSINOPHILS % (AUTO) 2.9 % (0.0-4.0); HEMATOCRIT 31.5 % (36-48); HEMOGLOBIN 10.4 g/dL (12.0-16.0); LYMPHOCYTES # (AUTO) 1.3 K/uL (2.5-16.5); LYMPHOCYTES % (AUTO) 26.5 % (20.5-51.1); MEAN CORPUSCULAR HEMOGLOBIN 25 pg (27-31); MEAN CORPUSCULAR HGB CONC 33 g/dL (33-37); MEAN CORPUSCULAR VOLUME 76.5 fL (80-94); MONOCYTES # (AUTO) 0.4 K/uL (0.8-1.0); MONOCYTES % (AUTO) 7.5 % (1.7-9.3); NEUTROPHILS # (AUTO) 3.1 K/uL (1.8-7.7); PLATELET COUNT (AUTO) 151 K/uL (140-450); RED BLOOD CELL COUNT(AUTO) 4.12 MIL/uL (4.20-5.40); RED CELL DISTRIBUTION WIDTH 15.4 % (11.6-13.7)
[2018-10-06 16:54] LABS: ANION GAP 10.7 (8-16); CARBON DIOXIDE 27.1 mmol/L (21-32); CREATININE 0.8 mg/dL (0.6-1.3); POTASSIUM 3.8 mmol/L (3.5-5.1)
[2018-10-06] MEDS ORDERED: ACET-2619 PO (16:59)
[2018-10-06 17:00] LABS: ALBUMIN 2.6 g/dL (3.4-5.0); TOTAL BILIRUBIN 0.2 mg/dL (0.0-1.0)
[2018-10-06] MEDS ORDERED: OMEP20TC12 PO (17:03)
[2018-10-06] MEDS ORDERED: [UNRECOGNIZED DRUG - CODE] PO (17:08)
[2018-10-06] MEDS ORDERED: MONT10TA35 PO (17:09)
[2018-10-06] MEDS ORDERED: ATOR10TA51 PO (17:09)
[2018-10-06] MEDS ORDERED: DICL100T2 PO (17:10)
[2018-10-06] MEDS ORDERED: DOCU-299 PO (17:11)
[2018-10-06 17:49] LABS: APPEARANCE,URINE CLEAR (CLEAR); BILIRUBIN,URINE NEGATIVE (NEGATIVE); BLOOD, URINE 2+ (NEGATIVE); COLOR,URINE YELLOW (YELLOW); LEUKOCYTE ESTERASE ,URINE NEGATIVE (NEGATIVE); NITRITE, URINE NEGATIVE (NEGATIVE); UGLUCOSE TRACE (NEGATIVE)
[2018-10-06 17:58] LABS: WBC,URINE 0-5 /HPF (0-5)
[2018-10-06] MEDS ORDERED: LORazepam 1 MG TAB PO ONE (18:50)
[2018-10-06 19:06] VITALS: BP 152/71
--- NOTE | 2018-10-06 19:07 | NUR ---
Patient discharged with v/s stable. Written and verbal after care instructions given and explained. Patient alert, oriented and verbalized understanding of instructions. Ambulatory with steady gait. All questions addressed prior to discharge. ID band removed. Patient advised to follow up with PMD. Rx of Vistaril capsule given. Patient educated on indication of medication including possible reaction and side effects. Opportunity to ask questions provided and answered.
== END 2018-10-06 19:07 | disposition home or self-care (01) ==
LOC: MED 14:52
DX: F41.1 Generalized anxiety disorder (principal); L08.9 Local infection of the skin and subcutaneous tissue, unspecified; I10 Essential (primary) hypertension; E11.9 Type 2 diabetes mellitus without complications; E07.9 Disorder of thyroid, unspecified; Z79.4 Long term (current) use of insulin; Z79.1 Long term (current) use of non-steroidal anti-inflammatories (NSAID); Z79.899 Other long term (current) drug therapy; Z79.2 Long term (current) use of antibiotics; Z88.8 Allergy status to other drugs, medicaments and biological substances; Z88.0 Allergy status to penicillin; Z88.2 Allergy status to sulfonamides
CPT/HCPCS: 36415; 71045; 73590; 80053; 81001; 83036; 83605; 83735; 83880; 84484; 85025; 85379; 87040; 87086; 93005; 93971; 96365; 99284; J3490; J7030; Q0092

== ENCOUNTER 2018-10-08 14:58 | Emergency (ER) | payer OTHER ==
[~2018-10-08] VITALS: Ht 149.9 cm; Wt 86.3 kg
[~2018-10-08 14:58] MED LIST changes: +ACET-2619 PO; +ATOR10TA51 PO; +DICL100T2 PO; +DOCU-299 PO; +MONT10TA35 PO; +OMEP20TC12 PO; +[UNRECOGNIZED DRUG - CODE] PO
[2018-10-08 15:07] VITALS: BP 220/95
--- NOTE | 2018-10-08 15:38 | NUR ---
62 Y FEMALE BIB FAMILY C/O HYPERTENSION. PT CURRENT BP 220/95, PT TOOK LISINOPRIL 40MG 1 HOUR AGO. PT STOPPED TAKING IV ABX TUESDAY AND HAS NOT RECIEVED REPLACEMENT ABX. PT HAS PICC LINE IN KAYE, LAST DRESSING CHANGE PERFORMED ON 09/30/18. PT ADMITTED 09/30/18, DC'D 10/03, HAD FOLLOW UP VISIT ON 10/06 AND WAS SENT BACK TO ER FOR HYPERTENSION. PT REPORTS PAIN IN PICC LINE LOCATION. PT AA0X4. BED IS DOWN, LOCKED, BED RAIL X 1, ERMD TO SEE PT. MEDHX:DM, HTN, ARTHRITIS
--- NOTE | 2018-10-08 15:39 | NUR ---
PER PT, HER HOME HEALTH NURSE COMES TOMORROW TO ADDRESS DRESSING CHANGE. TEGRADERM PLACED.
--- NOTE | 2018-10-08 15:40 | NUR ---
DR DODD AT BEDSIDE
[2018-10-08] MEDS ORDERED: cloNIDine 0.1 MG TAB PO ONE (15:45)
--- NOTE | 2018-10-08 16:25 | NUR ---
NEW BP IS 198/72.
[2018-10-08] MEDS ORDERED: hydrALAZINE 20 MG/ML VIAL IVP ONE (16:30)
--- NOTE | 2018-10-08 16:38 | NUR ---
NEW BP IS 166/47
--- NOTE | 2018-10-08 16:40 | NUR ---
DR DODD AT BEDSIDE FOR PT RE-EVALUATION
[2018-10-08 17:20] VITALS: BP 182/63
--- NOTE | 2018-10-08 17:20 | NUR ---
Patient discharged with v/s stable. Written and verbal after care instructions given and explained. Patient verbalized understanding. Ambulatory with steady gait. All questions addressed prior to discharge. Advised to follow up with PMD AND HOME HEALTH AGENCY.
== END 2018-10-08 17:20 | disposition home or self-care (01) ==
LOC: MED 14:58
DX: I10 Essential (primary) hypertension (principal); E11.9 Type 2 diabetes mellitus without complications; E07.9 Disorder of thyroid, unspecified; Z79.4 Long term (current) use of insulin; Z79.899 Other long term (current) drug therapy; Z88.2 Allergy status to sulfonamides; Z88.8 Allergy status to other drugs, medicaments and biological substances
CPT/HCPCS: 99282; J0360

== ENCOUNTER 2018-12-03 17:27 | Emergency (ER) | payer OTHER ==
[~2018-12-03] VITALS: Ht 149.9 cm; Wt 87.1 kg
[~2018-12-03 17:27] MED LIST changes: -GABA300C PO; -METF1000 PO; -VAS5 PO
[2018-12-03 17:34] VITALS: BP 175/72
--- NOTE | 2018-12-03 17:51 | NUR ---
62F C/O LEFT EYE REDNESS X MINUTES. PAIN SCALE 10/10. DENIES VISION CHANGES, TRAUMA. LEFT EYE CONJUNCTIVA IS EDEMATOUS AND ERYTHEMATOUS. HX: HTN, DM.
--- NOTE | 2018-12-03 17:59 | NUR ---
DR. JOHNSON AT BEDSIDE. NOTIFED OF FSBS 287 MG/DL
[2018-12-03] MEDS ORDERED: KETOROLAC 60 MG/2 ML VIAL IM ONE (18:00)
[2018-12-03 18:40] VITALS: BP 161/75
--- NOTE | 2018-12-03 18:40 | NUR ---
Patient discharged with v/s stable. Written and verbal after care instructions given and explained. Patient alert, oriented and verbalized understanding of instructions. Ambulatory with steady gait. All questions addressed prior to discharge. ID band removed. Patient advised to follow up with PMD. Rx of MOTRIN AND KETOROLAC OPHTHALMIC given. Patient educated on indication of medication including possible reaction and side effects. Opportunity to ask questions provided and answered.
== END 2018-12-03 18:14 | disposition home or self-care (01) ==
LOC: MED 17:27
DX: H11.32 Conjunctival hemorrhage, left eye (principal); H11.422 Conjunctival edema, left eye; E11.9 Type 2 diabetes mellitus without complications; I10 Essential (primary) hypertension; E07.9 Disorder of thyroid, unspecified; Z79.899 Other long term (current) drug therapy; Z79.4 Long term (current) use of insulin; Z88.0 Allergy status to penicillin; Z88.2 Allergy status to sulfonamides; Z88.8 Allergy status to other drugs, medicaments and biological substances
CPT/HCPCS: 82948; 96372; 99283; J1885

== ENCOUNTER 2019-08-11 13:50 | Emergency (ER) | payer OTHER ==
[~2019-08-11] VITALS: Ht 149.9 cm; Wt 88.5 kg
[2019-08-11 14:05] VITALS: BP 174/48
[2019-08-11 14:31] VITALS: BP 174/48
== END 2019-08-11 14:31 | disposition home or self-care (01) ==
LOC: MED 13:50 → EEVIPCON 13:50 → MED 14:31
DX: I10 Essential (primary) hypertension (principal); R05 Cough; E11.9 Type 2 diabetes mellitus without complications; E07.9 Disorder of thyroid, unspecified; Z79.4 Long term (current) use of insulin; Z79.899 Other long term (current) drug therapy; Z88.2 Allergy status to sulfonamides; Z88.8 Allergy status to other drugs, medicaments and biological substances; Z88.0 Allergy status to penicillin
CPT/HCPCS: 99283

== ENCOUNTER 2019-09-01 11:42 | Emergency (ER) | payer OTHER ==
[~2019-09-01] VITALS: Ht 149.9 cm; Wt 88.0 kg
[2019-09-01 11:46] VITALS: BP 155/66
--- NOTE | 2019-09-01 11:51 | NUR ---
AMBULATED TO BED 6
--- NOTE | 2019-09-01 12:34 | NUR ---
PATIENT COMING IN TODAY FOR A REFILL ON CLONIDINE 0.1MG BID. RAN OUT YESTERDAY. DENIES ANY C/P, HEADACHE OR SOB AT THIS TIME. CURRENT B/P 155/66. ALLERGIES - PCN, SULFA MED HX - HTN, DIABETES
[2019-09-01 12:52] VITALS: BP 155/60
--- NOTE | 2019-09-01 12:52 | NUR ---
Patient discharged with v/s stable. Written and verbal after care instructions given and explained. Patient alert, oriented and verbalized understanding of instructions. Ambulatory with steady gait. All questions addressed prior to discharge. ID band removed. Patient advised to follow up with PMD. Rx of Clonidine 0.1mg given. Patient educated on indication of medication including possible reaction and side effects. Opportunity to ask questions provided and answered.
== END 2019-09-01 12:52 | disposition home or self-care (01) ==
LOC: MED 11:42
DX: R53.83 Other fatigue (principal); E11.9 Type 2 diabetes mellitus without complications; I10 Essential (primary) hypertension; E07.9 Disorder of thyroid, unspecified; Z76.0 Encounter for issue of repeat prescription; Z79.4 Long term (current) use of insulin; Z79.899 Other long term (current) drug therapy; Z88.0 Allergy status to penicillin; Z88.2 Allergy status to sulfonamides; Z88.8 Allergy status to other drugs, medicaments and biological substances
CPT/HCPCS: 99281

== ENCOUNTER 2020-01-05 16:03 | Emergency (ER) | payer OTHER ==
[~2020-01-05] VITALS: Ht 149.9 cm; Wt 83.5 kg
[2020-01-05 16:10] VITALS: BP 163/78
--- NOTE | 2020-01-05 16:19 | NUR ---
pt took her bs prior to coming to hospital does not want to check at this time again
--- NOTE | 2020-01-05 16:22 | NUR ---
Pt ambulated to bed 6.
--- NOTE | 2020-01-05 16:30 | NUR ---
64 Y/O F C/C HEADACHE X 3 DAYS, RIGHT PARIETAL LOBE AREA, NON RADIATING, TINGLING SENSATION, 8/10 PAIN. NEURO WNL, PUPILS PERRLA. PT PRESENTS EUPNIC,AMBULATORY,A/OX4. PT TAKEN OTC RX WITH NO RELIEF. ALLERGIES PNC,SULFA,IODINE. HX HTN,DM,THYROID DISEASE. RX LEVOTHYROXINE,INSULIN. NO NVD. SIDE RAIL X1.
[2020-01-05] MEDS ORDERED: ACETAMINOPHEN 325 MG TAB PO ONE (17:10)
--- NOTE | 2020-01-05 18:03 | NUR ---
PT REFUSED IV INSERTION ON THE RIGHT HAND AND LEFT HAND, ER PA NOTIFIED.
--- NOTE | 2020-01-05 18:03 | NUR ---
UNABLE TO PERFORM CT SCAN WITH CONTRAST. ER PA NOTIFIED.
--- NOTE | 2020-01-05 18:04 | NUR ---
ER PA AT BEDSIDE
--- NOTE | 2020-01-05 18:10 | NUR ---
PT REFUSED BLOOD DRAWN. ER PA NOTIFIED.
--- NOTE | 2020-01-05 18:17 | NUR ---
ER PA AT BEDSIDE WITH ULTRASOUND FOR IV PLACEMENT
--- NOTE | 2020-01-05 18:45 | NUR ---
18G RIGHT UPPER ARM
--- NOTE | 2020-01-05 18:45 | NUR ---
18G PLACED VIA ULTRASOUND GUIDED PERIPHERAL IV BY ARMANDO BACH
--- NOTE | 2020-01-05 18:46 | NUR ---
CONSENT OBTAINED FOR CT WITH CONTRAST
[2020-01-05 18:50] LABS: BASOPHILS # (AUTO) 0.1 K/uL (0.00-0.22); BASOPHILS % (AUTO) 0.9 % (0.0-2.0); EOSINOPHILS # (AUTO) 0.1 K/uL (0-0.4); EOSINOPHILS % (AUTO) 1.5 % (0.0-4.0); HEMATOCRIT 36.4 % (36-48); HEMOGLOBIN 11.9 g/dL (12.0-16.0); LYMPHOCYTES # (AUTO) 1.3 K/uL (2.5-16.5); LYMPHOCYTES % (AUTO) 20.4 % (20.5-51.1); MEAN CORPUSCULAR HEMOGLOBIN 25 pg (27-31); MEAN CORPUSCULAR HGB CONC 33 g/dL (33-37); MEAN CORPUSCULAR VOLUME 76.9 fL (80-94); MONOCYTES # (AUTO) 0.4 K/uL (0.8-1.0); MONOCYTES % (AUTO) 5.8 % (1.7-9.3); NEUTROPHILS # (AUTO) 4.5 K/uL (1.8-7.7); NEUTROPHILS % (AUTO) 71.4 % (42.2-75.2); PLATELET COUNT (AUTO) 187 K/uL (140-450); RED BLOOD CELL COUNT(AUTO) 4.74 MIL/uL (4.20-5.40); RED CELL DISTRIBUTION WIDTH 12.8 % (11.6-13.7); WHITE BLOOD COUNT (AUTO) 6.3 K/uL (4.8-10.8)
[2020-01-05 18:58] LABS: ANION GAP 13.8 (8-16); CARBON DIOXIDE 26.6 mmol/L (21-32); CREATININE 1.2 mg/dL (0.6-1.3); POTASSIUM 4.4 mmol/L (3.5-5.1)
[2020-01-05 19:03] LABS: ALBUMIN 2.6 g/dL (3.4-5.0); TOTAL BILIRUBIN 0.2 mg/dL (0.0-1.0)
--- NOTE | 2020-01-05 19:08 | NUR ---
REPORT GIVEN TO [facility] SAWYER FOR CONTINUITY OF CARE
--- NOTE | 2020-01-05 19:08 | NUR ---
REPORT RECEIVED FROM RILEY SAWYER FOR CONTINUITY OF CARE
[2020-01-05] MEDS ORDERED: HYDROcodone/APAP 5/325 MG 1 TAB TAB PO ONE (19:30)
[2020-01-05] MEDS ORDERED: ONDANSETRON 4 MG ODT PO ONE (19:30)
[2020-01-05] MEDS ORDERED: diphenhydrAMINE 50 MG/ML VIAL IVP ONE (19:40)
[2020-01-05] MEDS ORDERED: predniSONE 20 MG TAB PO ONE (19:45)
[2020-01-05] MEDS ORDERED: predniSONE 20 MG TAB ONE (20:11)
[2020-01-05] MEDS ORDERED: CRUSHER, PILL MC ONE (20:12)
--- NOTE | 2020-01-05 20:17 | NUR ---
PREDNISONE 50 MG GIVEN PO. Addendum: 01/05/20 at 2236 by [email or web address] GIANNA WANG.
--- NOTE | 2020-01-05 20:18 | NUR ---
PT AMBULATED TO RESTROOM STEADY GAIT
--- NOTE | 2020-01-05 20:19 | NUR ---
PT AMBULATED TO BED 06, STEADY GAIT
--- NOTE | 2020-01-05 20:55 | NUR ---
pt taken to ct via w/c
--- NOTE | 2020-01-05 21:10 | NUR ---
PT RETURNED FROM CT VIA W/C
[2020-01-05 22:35] VITALS: BP 150/60
--- NOTE | 2020-01-05 22:35 | NUR ---
Patient discharged with v/s stable. Written and verbal after care instructions given and explained. Patient alert, oriented and verbalized understanding of instructions. Ambulatory with steady gait. All questions addressed prior to discharge. ID band removed. IV Discontinued. Patient advised to follow up with PMD. Rx of IBUPROFEN, BENADRYL AND NORCO given. Patient educated on indication of medication including possible reaction and side effects. Opportunity to ask questions provided and answered.
== END 2020-01-05 22:35 | disposition home or self-care (01) ==
LOC: MED 16:03
DX: R51 Headache (principal); M79.18 Myalgia, other site; E07.9 Disorder of thyroid, unspecified; E11.9 Type 2 diabetes mellitus without complications; I10 Essential (primary) hypertension; I51.89 Other ill-defined heart diseases; Z88.0 Allergy status to penicillin; Z88.9 Allergy status to unspecified drugs, medicaments and biological substances; Z79.899 Other long term (current) drug therapy
CPT/HCPCS: 36415; 70450; 70496; 80053; 81002; 81025; 85025; 96374; 99285; J1200; J7512; Q0162

== ENCOUNTER 2021-02-12 13:44 | Emergency (ER) | payer OTHER, SELFPAY ==
[~2021-02-12] VITALS: Ht 149.9 cm; Wt 82.7 kg
[~2021-02-12 13:44] MED LIST changes: -ACET-2619 PO; +BEN50 PO; +CANA300T PO; -DICL100T2 PO; +GABA100C PO; +HYDR-3320 PO; +INSU100I7 SQ; -LANTUS SUBQ; +LEVO0.124 PO; -LEVO0.2T5 PO; +NIFE60TA39 PO; +OMEP-278 PO; -OMEP20TC12 PO; -UNKNOWN INSULIN SQVAC; -Vancomycin Per Pharmacy MC; -[UNRECOGNIZED DRUG - CODE] PO
[2021-02-12 14:02] VITALS: BP 207/93
[2021-02-12] MEDS ORDERED: NITR100C7 PO (17:21)
[2021-02-12 17:28] VITALS: BP 180/73
== END 2021-02-12 17:27 | disposition home or self-care (01) ==
LOC: MED 13:44
DX: N93.9 Abnormal uterine and vaginal bleeding, unspecified (principal); R10.2 Pelvic and perineal pain; J45.909 Unspecified asthma, uncomplicated; E11.9 Type 2 diabetes mellitus without complications; I10 Essential (primary) hypertension; Z88.0 Allergy status to penicillin; Z88.2 Allergy status to sulfonamides; Z88.6 Allergy status to analgesic agent
CPT/HCPCS: 76856; 81002; 99284; Q0092